=== PATIENT | female | born 1930 | race Caucasian/White ===

== ENCOUNTER 2017-12-02 18:11 | Inpatient (IN) | payer MEDICARE, OTHER ==
[~2017-12-02] VITALS: Ht 149.9 cm; Wt 46.4 kg
[~2017-12-02 18:11] MED LIST: ACET325 PO; ALBU3IS INH; AMLO5 PO; ASPI81CH PO; ATOR10 PO; Antacid-Simeth360 ML PO; BISA10S PR; CALCIT950 PO; CALTRATE 600 +1 EACH PO; CHOL10002 PO; CLOP75 PO; ELIQUIS2.5 MG PO; ESTRADIOL TRAN; EVAMIST; FEXO180 PO; FEXOFENADINE; FEXPSEER PO; FLAX PO; FLUT44OIA INH; FURO20 PO; FURO40 PO; Flovent Diskus50 MCG IH; Ipratr-Albuterol3 ML IH; LEVSOD50 PO; LEVSOD75 PO; LOPE2C PO; METO25ER PO; METO50 PO; Micro-K10 MEQ PO; Milk Of Ma400 MG/5 M PO; NEPHROCAP PO; Nephro-Vite RX1 EA PO; PANT40 PO; POTA20PAC; POTCHL20ER PO; PYRI100 PO; RENAL-VITE TAB0.8 MG PO; Toprol Xl50 MG PO; Ventolin Soln3 ML INH; [UNRECOGNIZED DRUG - OTHER] TP
[2017-12-02] MEDS ORDERED: AMLO5 PO (18:24)
[2017-12-02 20:30] LABS: BASOPHILS ABSOLUTE AUTO 0.03 K/mm3 (0.00-0.23); BASOPHILS PERCENT AUTO 0 % (0-2); EOSINOPHILS ABSOLUTE AUTO 0.07 K/mm3 (0.00-0.68); EOSINOPHILS PERCENT AUTO 1 % (0-6); Hematocrit 32.9 % (33.0-51.0); Hemoglobin 10.4 g/dL (11.5-16.0); IMMATURE GRAN ABSOLUTE AUTO 0.05 K/mm3 (0.00-0.10); IMMATURE GRAN PERCENT AUTO 0 % (0-1); LYMPHOCYTES ABSOLUTE AUTO 0.97 K/mm3 (0.84-5.20); LYMPHOCYTES PERCENT AUTO 7 % (21-46); MONOCYTES ABSOLUTE AUTO 0.72 K/mm3 (0.16-1.47); MONOCYTES PERCENT AUTO 5 % (4-13); Mean Corpuscular HGB 30.1 pg (26.0-34.0); Mean Corpuscular HGB Conc 31.6 g/dL (31.5-36.5); Mean Corpuscular Volume 95 fL (80-100); Mean Platelet Volume 10.5 fL (9.1-12.4); NEUTROPHILS ABSOLUTE AUTO 11.38 K/mm3 (1.96-9.15); NEUTROPHILS PERCENT AUTO 86 % (41-73); Platelet Count 560 K/mm3 (150-400); RDW Coefficient Variation 18.3 % (11.7-14.2); RDW Standard Deviation 63.3 fL (35.1-46.3); Red Blood Cell Count 3.46 M/mm3 (3.80-5.20); White Blood Cell Count 13.22 K/mm3 (4.00-11.30)
[2017-12-02 21:07] LABS: Albumin, Blood 3.5 g/dL (3.4-5.0); Albumin/Globulin Ratio 0.8 (0.8-1.8); Bilirubin, Total 0.5 mg/dL (0.1-1.0); Bun/Creatinine Ratio 21.2 (12.0-20.0); Calcium, Blood 9.2 mg/dL (8.5-10.1); Creatinine, Blood 1.04 mg/dL (0.40-1.00); Globulin, Blood 4.3 g/dL (2.2-4.0); Potassium, Blood 4.6 mmol/L (3.5-5.5); Total Protein, Blood 7.8 g/dL (6.4-8.2)
[2017-12-02 21:10] LABS: International Normalized Ratio 1.1; Prothrombin Time Results 11.5 Sec (9.7-11.5)
[2017-12-02 22:01] LABS: Source, Urine Catheter
[2017-12-02 22:07] LABS: Appearance, Urine Clear (Clear); Bilirubin, Urine Neg (Neg); Blood, Urine Neg (Neg); Color, Urine Yellow (P-Yellow); Glucose Qualitative, Urine Neg (Neg); Ketones, Urine Neg (Neg); Leukocyte Esterase, Urine 1+ (Neg); Nitrite, Urine Pos (Neg); Protein, Urine Neg (Neg); Specific Gravity, Urine 1.005 (1.003-1.022); Urobilinogen, Urine NORM (Normal)
[2017-12-02 22:22] LABS: Bacteria Many /hpf; Red Blood Cells, Urine Not Seen /hpf (0-2); Squamous Epithelial Cells Few /hpf (Few); White Blood Cells, Urine 0-2 /hpf (0-5)
[2017-12-03 04:32] LABS: BASOPHILS ABSOLUTE AUTO 0.04 K/mm3 (0.00-0.23); BASOPHILS PERCENT AUTO 0 % (0-2); EOSINOPHILS ABSOLUTE AUTO 0.34 K/mm3 (0.00-0.68); EOSINOPHILS PERCENT AUTO 3 % (0-6); Hematocrit 31.3 % (33.0-51.0); Hemoglobin 10.1 g/dL (11.5-16.0); IMMATURE GRAN ABSOLUTE AUTO 0.03 K/mm3 (0.00-0.10); IMMATURE GRAN PERCENT AUTO 0 % (0-1); LYMPHOCYTES PERCENT AUTO 10 % (21-46); MONOCYTES ABSOLUTE AUTO 0.57 K/mm3 (0.16-1.47); MONOCYTES PERCENT AUTO 6 % (4-13); Mean Corpuscular HGB 30.6 pg (26.0-34.0); Mean Corpuscular HGB Conc 32.3 g/dL (31.5-36.5); Mean Corpuscular Volume 95 fL (80-100); Mean Platelet Volume 10.6 fL (9.1-12.4); NEUTROPHILS ABSOLUTE AUTO 8.18 K/mm3 (1.96-9.15); NEUTROPHILS PERCENT AUTO 81 % (41-73); Platelet Count 476 K/mm3 (150-400); RDW Coefficient Variation 18.3 % (11.7-14.2); RDW Standard Deviation 62.9 fL (35.1-46.3); White Blood Cell Count 10.16 K/mm3 (4.00-11.30)
[2017-12-03 04:58] LABS: Albumin, Blood 2.9 g/dL (3.4-5.0); Albumin/Globulin Ratio 0.7 (0.8-1.8); Bilirubin, Total 0.7 mg/dL (0.1-1.0); Bun/Creatinine Ratio 19.2 (12.0-20.0); Calcium, Blood 8.4 mg/dL (8.5-10.1); Creatinine, Blood 0.99 mg/dL (0.40-1.00); Globulin, Blood 4.1 g/dL (2.2-4.0); Potassium, Blood 4.3 mmol/L (3.5-5.5)
[2017-12-06] MEDS ORDERED: CIPR500 PO (15:10)
[2017-12-06] MEDS ORDERED: Flonase 0.05% N16 GM (15:11)
[2017-12-06] MEDS ORDERED: Milk Of Ma400 MG/5 M PO (15:11)
[2017-12-06] MEDS ORDERED: OXYC5 PO (15:12)
== END 2017-12-06 16:55 | DRG 481 ==
LOC: ER 18:11 → SURS 20:51
PROVIDERS: Internal Medicine; Orthopaedic Surgery; Physician Assistant
PROC: 0QH734Z Insertion of Internal Fixation Device into Left Upper Femur, Percutaneous Approach (ICD-10-PCS; principal; 2017-12-03 12:30)
DX: S72.012A Unspecified intracapsular fracture of left femur, initial encounter for closed fracture (principal); N39.0 Urinary tract infection, site not specified; S52.502A Unspecified fracture of the lower end of left radius, initial encounter for closed fracture; Z99.81 Dependence on supplemental oxygen; I48.2 Chronic atrial fibrillation; I35.0 Nonrheumatic aortic (valve) stenosis; J44.9 Chronic obstructive pulmonary disease, unspecified; I10 Essential (primary) hypertension; W01.0XXA Fall on same level from slipping, tripping and stumbling without subsequent striking against object, initial encounter; E03.9 Hypothyroidism, unspecified; B96.20 Unspecified Escherichia coli [E. coli] as the cause of diseases classified elsewhere; I25.10 Atherosclerotic heart disease of native coronary artery without angina pectoris; I67.9 Cerebrovascular disease, unspecified; Y92.099 Unspecified place in other non-institutional residence as the place of occurrence of the external cause; Z66 Do not resuscitate; Z79.02 Long term (current) use of antithrombotics/antiplatelets; Z79.82 Long term (current) use of aspirin; Z79.51 Long term (current) use of inhaled steroids; Z79.899 Other long term (current) drug therapy; Z86.73 Personal history of transient ischemic attack (TIA), and cerebral infarction without residual deficits; Z85.72 Personal history of non-Hodgkin lymphomas; Z87.891 Personal history of nicotine dependence; Z88.5 Allergy status to narcotic agent; Z88.2 Allergy status to sulfonamides; Z88.8 Allergy status to other drugs, medicaments and biological substances
CPT/HCPCS: 29125; 36415; 71045; 73110; 73502; 73552; 80053; 81001; 85025; 85610; 87077; 87086; 87186; 93005; 93010; 96374; 97110; 97116; 97161; 97166; 97530; 97535; 99285; C1713; C1769; G8978; G8979; G8987; G8988; J0171; J0690; J1650; J2405; J3010; J7030; J7120

== ENCOUNTER → 2018-11-30 | Outpatient (CLI) | payer MEDICARE, OTHER ==
[~2018-11-30] MED LIST changes: +CIPR500 PO; +Flonase 0.05% N16 GM; +OXYC5 PO
[2018-11-30 10:48] LABS: BASOPHILS ABSOLUTE AUTO 0.01 K/mm3 (0.00-0.23); BASOPHILS PERCENT AUTO 0 % (0-2); EOSINOPHILS ABSOLUTE AUTO 0.07 K/mm3 (0.00-0.68); EOSINOPHILS PERCENT AUTO 1 % (0-6); Hematocrit 36.1 % (33.0-51.0); Hemoglobin 11.6 g/dL (11.5-16.0); IMMATURE GRAN ABSOLUTE AUTO 0.01 K/mm3 (0.00-0.10); IMMATURE GRAN PERCENT AUTO 0 % (0-1); LYMPHOCYTES ABSOLUTE AUTO 0.76 K/mm3 (0.84-5.20); LYMPHOCYTES PERCENT AUTO 14 % (21-46); MONOCYTES ABSOLUTE AUTO 0.53 K/mm3 (0.16-1.47); MONOCYTES PERCENT AUTO 10 % (4-13); Mean Corpuscular HGB Conc 32.1 g/dL (31.5-36.5); Mean Corpuscular Volume 99 fL (80-100); Mean Platelet Volume 11.1 fL (9.1-12.4); NEUTROPHILS PERCENT AUTO 75 % (41-73); Platelet Count 397 K/mm3 (150-400); RDW Coefficient Variation 16.9 % (11.7-14.2); RDW Standard Deviation 61.8 fL (35.1-46.3); Red Blood Cell Count 3.63 M/mm3 (3.80-5.20); White Blood Cell Count 5.58 K/mm3 (4.00-11.30)
[2018-11-30 11:12] LABS: Albumin, Blood 3.2 g/dL (3.4-5.0); Albumin/Globulin Ratio 0.7 (0.8-1.8); Bilirubin, Total 0.3 mg/dL (0.1-1.0); Bun/Creatinine Ratio 18.4 (12.0-20.0); Calcium, Blood 8.6 mg/dL (8.5-10.1); Creatinine, Blood 1.03 mg/dL (0.40-1.00); Globulin, Blood 4.5 g/dL (2.2-4.0); Potassium, Blood 5.2 mmol/L (3.5-5.5); Total Protein, Blood 7.7 g/dL (6.4-8.2)
== END | disposition home or self-care (01) ==
LOC: LAB SHORT 10:36 → LAB EV 10:36
PROVIDERS: Physician Assistant Medical
DX: R50.9 Fever, unspecified (principal); I50.9 Heart failure, unspecified
CPT/HCPCS: 80053; 83880; 85025

== ENCOUNTER 2019-03-02 16:21 | Emergency (ER) | payer MEDICARE, OTHER ==
[~2019-03-02] VITALS: Ht 149.9 cm; Wt 43.0 kg
[2019-03-02] MEDS ORDERED: DELTASONE20 MG PO (18:21)
== END 2019-03-02 18:46 | disposition home or self-care (01) ==
LOC: ER 16:21
DX: G51.0 Bell's palsy (principal); I10 Essential (primary) hypertension; E03.9 Hypothyroidism, unspecified; J44.9 Chronic obstructive pulmonary disease, unspecified; Z88.2 Allergy status to sulfonamides; Z79.899 Other long term (current) drug therapy; Z87.891 Personal history of nicotine dependence
CPT/HCPCS: 70450; 99284-25

== ENCOUNTER → 2019-09-28 | Outpatient (CLI) | payer MEDICARE, OTHER ==
[~2019-09-28] MED LIST changes: +Anti-Diarrheal2 MG PO; +CARB10OTL BOTHEARS; +DELTASONE20 MG PO; +Duoneb 2.5-0.5 M3 ML INH; +Ear System15 ML BOTHEARS; +GENTEAL TEARS 015 M1 BOTHEYES; -Ipratr-Albuterol3 ML IH; -LEVSOD50 PO; +MIRT15ST PO; +Mirtazapine7.5 MG PO; +NYST100000 PO; +PROAIR DIGIHAL90 MCG PO; +THERA-D2000 UNIT PO
== END | disposition home or self-care (01) ==
LOC: LAB SHORT 13:50 → LAB 13:50
DX: R30.9 Painful micturition, unspecified (principal)
CPT/HCPCS: 87077; 87086; 87186

== ENCOUNTER 2019-09-29 11:06 | Emergency (ER) | payer MEDICARE, OTHER ==
[~2019-09-29] VITALS: Ht 149.9 cm; Wt 41.3 kg
[~2019-09-29 11:06] MED LIST changes: -Ear System15 ML BOTHEARS; -Mirtazapine7.5 MG PO
== END 2019-09-29 12:35 | disposition home or self-care (01) ==
LOC: ER 11:06
DX: K22.0 Achalasia of cardia (principal); I10 Essential (primary) hypertension; J44.9 Chronic obstructive pulmonary disease, unspecified; Z88.2 Allergy status to sulfonamides; Z88.8 Allergy status to other drugs, medicaments and biological substances; Z88.5 Allergy status to narcotic agent; Z79.899 Other long term (current) drug therapy; Z79.51 Long term (current) use of inhaled steroids; Z79.01 Long term (current) use of anticoagulants; Z79.82 Long term (current) use of aspirin; Z86.73 Personal history of transient ischemic attack (TIA), and cerebral infarction without residual deficits; Z87.891 Personal history of nicotine dependence
CPT/HCPCS: 99283

== ENCOUNTER 2019-10-04 13:47 | Inpatient (IN) | payer MEDICARE, OTHER ==
[~2019-10-04] VITALS: Ht 149.9 cm; Wt 41.3 kg
[2019-10-04 14:24] LABS: BASOPHILS ABSOLUTE AUTO 0.04 K/mm3 (0.00-0.23); BASOPHILS PERCENT AUTO 1 % (0-2); EOSINOPHILS ABSOLUTE AUTO 0.04 K/mm3 (0.00-0.68); EOSINOPHILS PERCENT AUTO 1 % (0-6); Hematocrit 37.2 % (33.0-51.0); IMMATURE GRAN ABSOLUTE AUTO 0.02 K/mm3 (0.00-0.10); IMMATURE GRAN PERCENT AUTO 0 % (0-1); LYMPHOCYTES ABSOLUTE AUTO 0.69 K/mm3 (0.84-5.20); LYMPHOCYTES PERCENT AUTO 10 % (21-46); MONOCYTES ABSOLUTE AUTO 0.94 K/mm3 (0.16-1.47); MONOCYTES PERCENT AUTO 13 % (4-13); Mean Corpuscular HGB 31.3 pg (26.0-34.0); Mean Corpuscular HGB Conc 29.6 g/dL (31.5-36.5); Mean Corpuscular Volume 106 fL (80-100); Mean Platelet Volume 11.3 fL (9.1-12.4); NEUTROPHILS ABSOLUTE AUTO 5.34 K/mm3 (1.96-9.15); NEUTROPHILS PERCENT AUTO 75 % (41-73); Platelet Count 414 K/mm3 (150-400); RDW Coefficient Variation 17.2 % (11.7-14.2); RDW Standard Deviation 66.2 fL (35.1-46.3); Red Blood Cell Count 3.52 M/mm3 (3.80-5.20); White Blood Cell Count 7.07 K/mm3 (4.00-11.30)
[2019-10-04 14:46] LABS: Percent Saturation 9.7 % (15.0-50.0)
[2019-10-04 14:49] LABS: Albumin, Blood 3.5 g/dL (3.4-5.0); Albumin/Globulin Ratio 0.8 (0.8-1.8); Bilirubin, Total 0.5 mg/dL (0.1-1.0); Calcium, Blood 9.4 mg/dL (8.5-10.1); Creatinine, Blood 1.14 mg/dL (0.40-1.00); Globulin, Blood 4.3 g/dL (2.2-4.0); Potassium, Blood 5.5 mmol/L (3.5-5.5); Total Protein, Blood 7.8 g/dL (6.4-8.2)
[2019-10-04 14:53] LABS: Thyroid Stimulating Hormone 0.861 uIU/mL (0.360-4.800)
[2019-10-04] MEDS ORDERED: Mirtazapine7.5 MG PO (15:31)
--- NOTE | 2019-10-04 17:32 | NUR ---
REPORT RECEIVED FROM ED RN ECHO BEING COMPLETED AT BEDSIDE IN ED PRIOR TO TRANSFER. AWAITING ARRIVAL OF PATIENT.
[2019-10-04] MEDS ORDERED: Ear System15 ML BOTHEARS (18:30)
[2019-10-04] MEDS ORDERED: GENTEAL TEARS 015 M1 BOTHEYES (18:31)
[2019-10-04] MEDS ORDERED: NYST100000 PO (18:32)
--- NOTE | 2019-10-05 03:11 | NUR ---
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 PT IS ASYMPTOMATIC AND RESTING QUIETLY. PREVIOUS 2 EKGS ON CHART. WILL CALL DR BULL BACK WITH RESULT.
[2019-10-05 05:24] LABS: BASOPHILS ABSOLUTE AUTO 0.04 K/mm3 (0.00-0.23); BASOPHILS PERCENT AUTO 1 % (0-2); EOSINOPHILS ABSOLUTE AUTO 0.08 K/mm3 (0.00-0.68); EOSINOPHILS PERCENT AUTO 1 % (0-6); Hemoglobin 10.5 g/dL (11.5-16.0); IMMATURE GRAN ABSOLUTE AUTO 0.06 K/mm3 (0.00-0.10); IMMATURE GRAN PERCENT AUTO 1 % (0-1); LYMPHOCYTES ABSOLUTE AUTO 0.61 K/mm3 (0.84-5.20); LYMPHOCYTES PERCENT AUTO 9 % (21-46); MONOCYTES ABSOLUTE AUTO 0.92 K/mm3 (0.16-1.47); MONOCYTES PERCENT AUTO 14 % (4-13); Mean Corpuscular HGB 31.3 pg (26.0-34.0); Mean Corpuscular HGB Conc 29.2 g/dL (31.5-36.5); Mean Corpuscular Volume 107 fL (80-100); Mean Platelet Volume 11.3 fL (9.1-12.4); NEUTROPHILS ABSOLUTE AUTO 5.04 K/mm3 (1.96-9.15); NEUTROPHILS PERCENT AUTO 75 % (41-73); Platelet Count 405 K/mm3 (150-400); RDW Coefficient Variation 17.3 % (11.7-14.2); RDW Standard Deviation 68.1 fL (35.1-46.3); Red Blood Cell Count 3.36 M/mm3 (3.80-5.20); White Blood Cell Count 6.75 K/mm3 (4.00-11.30)
[2019-10-05 05:56] LABS: Bun/Creatinine Ratio 31.6 (12.0-20.0); Calcium, Blood 8.8 mg/dL (8.5-10.1); Creatinine, Blood 1.33 mg/dL (0.40-1.00); Magnesium, Blood 2.3 mg/dL (1.6-2.4)
--- NOTE | 2019-10-05 07:33 | NUR ---
EOS: RECEIVED CALL FROM [facility] TECH STATING CLAUDY WAS 2ND DEGREE BLOCK TYPE 2, DR BULL WAS NOTIFIED AND AN EKG WAS TAKEN. PT REMAINS ASYMPTOMAIC. DR NOTIFIED OF RESULT. CURRENT AND PREVIOUS EKGS ON FROMNT OF A CHART ALONG WITH STRIP FROM TELEMTRY.
--- NOTE | 2019-10-05 17:14 | NUR ---
Clinical Visit: Pt is resting comfortably in bed. No s/s of distress. Daughter, Ezequiel, is at bedside with her , Freddie. Ezequiel reports that the pt has been more tired, sleeping more, eating less for several weeks now, with the last two weeks especially so. She has talked to Dr. Mckeon, who has told her that hospice would be appropriate at this time. Ezequiel has a sister in [place], but she is the primary decision maker for pt. She is accepting of hospice services. Reviewed care and service. [facility]. Other arrangements will be made tomorrow, as care managers have already left for the day. She does not have a preference for agency at this time, likely the agency that can get to her first. No other concerns at this time. Left direct care supervisor note to follow up tomorrow. When daughter arrives to hospital, she is instructed to ask for the direct care supervisor for further arrangments. Will remain available.
--- NOTE | 2019-10-05 17:57 | NUR ---
SHIFT SUMMARY PATIENT A/O X 3-4 AND WITH SOME CONFUSION AT TIMES BUT DOES ANSWER QUESTIONS ACCURATELY WITH TIME. NO SOB/CHEST PAIN REPORTED. PATIENT TELE D/C TODAY. PATIENT IS LIKELY MOVING TOWARDS A PALLIATIVE/HOSPICE TYPE CARE BEGINNING TOMORROW. PATIENT AMBULATES WITH ASSISTANCE AND FWW. PATIENT UNABLE TO BE WEANED OFF O2. FAMILY AT BEDSIDE AND INCLUDED IN PLAN OF CARE.
--- NOTE | 2019-10-06 04:21 | NUR ---
LEAD FRONT DESK AGENT SUMMARY NO ACUTE CHANGES THIS SHIFT. PT AAOX3 WITH SOME INTERMITTENT CONFUSION. PT UP TO BEDSIDE COMMODE WITH ASSIST TO VOID BEFORE BED, HOWEVER PT DID HAVE AN EPISODE OF INCONTINENCE WHILE SLEEPING. PT CONTINUES ON NECTAR THICK LIQUIDS ALTHOUGH PT DOES NOT LIKE THIS. FAMILY FROM [place] IN TO SEE PT AT AROUND 0200. FAMILY MEMBERS GIVING PT THIN LIQUIDS, EDUCATED BY THIS RN REGARDING ASPIRATION PRECAUTIONS. PT DENIES PAIN, SOB, N/V. VSS, WILL CONTINUE TO MONITOR.
[2019-10-06 08:35] LABS: Bun/Creatinine Ratio 39.7 (12.0-20.0); Calcium, Blood 8.5 mg/dL (8.5-10.1); Creatinine, Blood 1.21 mg/dL (0.40-1.00); Potassium, Blood 4.8 mmol/L (3.5-5.5)
--- NOTE | 2019-10-06 10:58 | NUR ---
PATIENT TRANSITIONED TO COMFORT CARE. INFORMED FAMILY OF CHANGE IN STATUS. FAMILY AT BEDSIDE OFFERING FLUIDS. DR. DAVID FELDMAN FOR PATIENT TO ADVANCE DIET TOLERATED.
--- NOTE | 2019-10-06 11:44 | NUR ---
Comfort Care: Pt was placed on comfort care this morning. It appears she had a change in condition overnight. She appears to have started her actively dying phase. Nurse reports that her breathing has changed from yesterday. She is less alert. She is minimally interactive with staff and family. Pt's two daughters and two neices are present in the room. They have been in the medical field and one of them is an RN. They have been providing care for the pt, repositioning and applying barrier cream to her gluteal fold. They have no concerns at this time, other than a discharge plan for her. Instructed that it appears that she will no longer be appropriate to transfer back to [place] for hospice services as she has advanced in her dying phase so quickly. The risk would be her life ending in transit or soon after arriving at the facility before she could be enrolled in the hospice support. [place] staff is expressing concern about taking her back without immediate support from hospice. Will remain available. Recommend pt staying here for the duration of her dying process.
--- NOTE | 2019-10-06 16:00 | NUR ---
ATTENDS CHANGED. REPOSITIONED FOR COMFORT. FAMILY AT BEDSIDE.
--- NOTE | 2019-10-06 17:28 | NUR ---
MEDICATED FOR PAIN TO HER TAILBONE, REPOSITIONING.
--- NOTE | 2019-10-06 18:31 | NUR ---
SHIFT SUMMARY PATIENT IN BED. FAMILY AT BEDSIDE. REPOSITIONING PATIENT. PATIENT COMPLAINING OF BEING HOT. REFUSING SUPPOSITORY, TYLENOL. DOES NOT APPEAR ALERT ENOUGH TO TAKE PILLS SAFELY. GIVEN ORAL ROXANOL FOR TAILBONE PAIN. FAN AND ICE PACKS GIVEN, EXTRA SHEETS REMOVED.
--- NOTE | 2019-10-07 04:42 | NUR ---
DENTAL HYGIENE PROFESSOR SUMMARY NO ACUTE CHANGES THIS SHIFT. PT REMAINS ON COMFORT CARE. FAMILY AT BEDSIDE THROUGH THE NIGHT. PT RESTING COMFORTABLY THROUGHOUT SHIFT. GIVEN ATROPINE DROPS X1 FOR SOME EXCESSIVE SECRETIONS. WILL CONTINUE TO MONITOR.
--- NOTE | 2019-10-07 07:47 | NUR ---
MULT FAMILY @ BEDSIDE. PT NONRESPONSIVE, HR IRREG APPROX 100. R/R 12, SHALOW SOMEWHAT AGONAL. DISCUSSED COMFORT CARE MEASURES. 5MG ROXANOL GIVEN @ THIS TIME FOR MILD SYMPTOMS OF PAIN, AIR HUNGER & COMFORT. LIGHT ORAL CARE PROVIDED.
--- NOTE | 2019-10-07 08:18 | NUR ---
0808 pt peacefully w/o s/s pain, supportive family @ bedside. discharge coordinator, nurs supvr & dr dixon notified.
== END 2019-10-07 08:10 | DRG 291 ==
LOC: ER 13:47 → MEDS 16:53
PROVIDERS: Internal Medicine; Physician Assistant; ADMIT Internal Medicine
DX: I13.0 Hypertensive heart and chronic kidney disease with heart failure and stage 1 through stage 4 chronic kidney disease, or unspecified chronic kidney disease (principal); I50.33 Acute on chronic diastolic (congestive) heart failure; J96.21 Acute and chronic respiratory failure with hypoxia; E43 Unspecified severe protein-calorie malnutrition; N39.0 Urinary tract infection, site not specified; Z68.1 Body mass index [BMI] 19.9 or less, adult; N18.3 Chronic kidney disease, stage 3 (moderate); D50.9 Iron deficiency anemia, unspecified; E03.9 Hypothyroidism, unspecified; I25.10 Atherosclerotic heart disease of native coronary artery without angina pectoris; I35.0 Nonrheumatic aortic (valve) stenosis; I48.0 Paroxysmal atrial fibrillation; J44.9 Chronic obstructive pulmonary disease, unspecified; K21.9 Gastro-esophageal reflux disease without esophagitis; R13.10 Dysphagia, unspecified; Z86.73 Personal history of transient ischemic attack (TIA), and cerebral infarction without residual deficits; R26.89 Other abnormalities of gait and mobility; Z51.5 Encounter for palliative care; Z99.81 Dependence on supplemental oxygen; Z85.71 Personal history of Hodgkin lymphoma; Z87.891 Personal history of nicotine dependence; Z66 Do not resuscitate; B96.20 Unspecified Escherichia coli [E. coli] as the cause of diseases classified elsewhere
CPT/HCPCS: 36415; 71045; 80048; 80053; 83540; 83550; 83735; 83880; 84443; 84484; 85025; 92526; 92610; 93005; 93010; 93306; 94640; 94760; 96374; 99285-25; J1650; J1940